=== PATIENT | male | born 1980 | race Caucasian/White ===

== ENCOUNTER 2024-09-18 10:51 | Observation (INO) ==
[2024-09-18] MEDS ORDERED: DILAUDID INJ IVP PRN (12:05)
--- NOTE | 2024-09-18 12:24 | EKG ---
Test Reason : pre-operative clearance Blood Pressure : */* mmHG Vent. Rate : 90 BPM Atrial Rate : 90 BPM P-R Int : 150 ms QRS Dur : 90 ms QT Int : 352 ms P-R-T Axes : 22 19 70 degrees QTc Int : 430 ms Normal sinus rhythm Nonspecific ST and T wave abnormality Abnormal ECG No previous ECGs available Confirmed by Holger Wasserman MD ([id number]) on 09/18/2024 5:31:51 PM Referred By: Confirmed By: Holger Wasserman MD
[2024-09-18 12:35] LABS: BASOPHILS % (AUTO) 0.7 % (0.2-1.0); EOSINOPHILS # (AUTO) 0.1 x10^3/uL (0.0-0.2); EOSINOPHILS % (AUTO) 1.1 % (0.9-2.9); HEMATOCRIT 39.5 % (42.0-54.0); HEMOGLOBIN 13.4 g/dL (13.5-18.0); LYMPHOCYTES # (AUTO) 1.7 X10^3/uL (1.3-2.9); LYMPHOCYTES % (AUTO) 29.7 % (21.0-51.0); MEAN CORPUSCULAR HEMOGLOBIN 28.2 pg (27.0-34.0); MEAN CORPUSCULAR HGB CONC 33.9 g/dL (33.0-35.0); MEAN CORPUSCULAR VOLUME 83.1 fL (80.0-100.0); MEAN PLATELET VOLUME 8.3 fL (7.4-11.0); MONOCYTES # (AUTO) 0.4 x10^3/uL (0.3-0.8); MONOCYTES % (AUTO) 7.3 % (0.0-13.0); NEUTROPHILS # (AUTO) 3.5 x10^3/uL (2.2-4.8); NEUTROPHILS % (AUTO) 61.2 % (42.0-75.0); PLATELET COUNT 305 X10^3/uL (150.0-450.0); RED BLOOD COUNT 4.75 X10^6/uL (4.7-6.0); RED CELL DISTRIBUTION WIDTH 15.6 % (11.6-16.5); WHITE BLOOD COUNT 5.7 X10^3/uL (3.6-10.0)
[2024-09-18 12:49] LABS: ALANINE AMINOTRANSFERASE 17 Units/L (12-78); ALBUMIN 3.3 g/dL (3.4-5.0); ALKALINE PHOSPHATASE 58 Units/L (46-116); AMYLASE 76 Units/L (25-115); ASPARTATE AMINO TRANSFERASE 32 Units/L (15-37); BLOOD UREA NITROGEN 11 mg/dL (7-18); CALCIUM 9.3 mg/dL (8.5-10.1); CHLORIDE 97 mmol/L (98-107); COR CA(FOR HYPOALB) 9.9 mg/dL (8.5-10.1); CREATININE 1.68 mg/dL (0.70-1.30); GLUCOSE 88 mg/dL (65-99); LIPASE 61 Units/L (16-77); POTASSIUM 4.1 mmol/L (3.5-5.1); SODIUM 132 mmol/L (136-145); TOTAL PROTEIN 7.6 g/dL (6.4-8.2); eGFR NON BLACK RACES 48 (>60)
--- NOTE | 2024-09-18 13:17 | RAD ---
EXAM: CHEST, PA/LAT ADULT HISTORY: PREOP GB SX; COMPARISON: No relevant prior studies were available for comparison at the time of interpretation. TECHNIQUE: CHEST, PA/LAT ADULT FINDINGS: Chest: Lines and tubes: Right sided implanted port with tip in satisfactory position. Mediastinum: Cardiac and mediastinal shadow is within normal limits for size and contour. Pulmonary vessels: No pulmonary vascular congestion. Lung menezes: No suspicious airspace opacity. Pleura: No effusion. No pneumothorax. Bones and soft tissues: No acute osseous or soft tissue abnormality. IMPRESSION: 1. No acute cardiopulmonary abnormality THIS IS AN ELECTRONICALLY VERIFIED FINAL REPORT 09/18/2024 1:13 PM - Electronically signed by Willy Nichols MD
[2024-09-18] MEDS: ZOFRAN INJ 4 MG VIAL IVP PRN (13:32)
[2024-09-18] MEDS: D5 1/2 NS 1,000 ML 1,000 ML IV SCH (13:36)
[2024-09-18 14:13] VITALS: BMI 27.4
[2024-09-18] MEDS: CLARITIN PO SCH (15:05)
[2024-09-18] MEDS: TYLENOL 325 MG TAB PO PRN (15:06)
[2024-09-18] MEDS ORDERED: ZOFRAN INJ 4 MG VIAL IVP PRN (18:24)
[2024-09-18] MEDS: PROTONIX INJ 40 MG VIAL IVP SCH (20:47)
[2024-09-19] MEDS: BUTT CREAM (COMPOUND) TOP PRN (04:39)
[2024-09-19 06:17] LABS: BASOPHILS % (AUTO) 0.7 % (0.2-1.0); EOSINOPHILS # (AUTO) 0.2 x10^3/uL (0.0-0.2); EOSINOPHILS % (AUTO) 3.3 % (0.9-2.9); HEMATOCRIT 37.1 % (42.0-54.0); HEMOGLOBIN 12.7 g/dL (13.5-18.0); LYMPHOCYTES # (AUTO) 2.5 X10^3/uL (1.3-2.9); LYMPHOCYTES % (AUTO) 41.6 % (21.0-51.0); MEAN CORPUSCULAR HGB CONC 34.1 g/dL (33.0-35.0); MEAN CORPUSCULAR VOLUME 82.2 fL (80.0-100.0); MEAN PLATELET VOLUME 8.8 fL (7.4-11.0); MONOCYTES # (AUTO) 0.3 x10^3/uL (0.3-0.8); MONOCYTES % (AUTO) 5.4 % (0.0-13.0); PLATELET COUNT 248 X10^3/uL (150.0-450.0); RED BLOOD COUNT 4.52 X10^6/uL (4.7-6.0); RED CELL DISTRIBUTION WIDTH 15.7 % (11.6-16.5)
[2024-09-19 06:36] LABS: ALANINE AMINOTRANSFERASE 15 Units/L (12-78); ALBUMIN 2.8 g/dL (3.4-5.0); ALKALINE PHOSPHATASE 50 Units/L (46-116); ASPARTATE AMINO TRANSFERASE 21 Units/L (15-37); BLOOD UREA NITROGEN 8 mg/dL (7-18); CALCIUM 8.7 mg/dL (8.5-10.1); CARBON DIOXIDE 24.5 mmol/L (21-32); CHLORIDE 99 mmol/L (98-107); COR CA(FOR HYPOALB) 9.7 mg/dL (8.5-10.1); CREATININE 1.25 mg/dL (0.70-1.30); GLUCOSE 103 mg/dL (65-99); POTASSIUM 3.6 mmol/L (3.5-5.1); SODIUM 136 mmol/L (136-145); TOTAL PROTEIN 6.7 g/dL (6.4-8.2); eGFR NON BLACK RACES > 60 (>60)
[2024-09-19] MEDS ORDERED: CONSULT PHARMACY - POTASSIUM & MAGNESIUM XX SCH (09:00)
[2024-09-19] MEDS: MAGNESIUM SULFATE 1 GRAM/100 mL PREMIX 1 G/100 ML BAG IV SCH (10:28)
[2024-09-19] MEDS: NS 250 ML IV 250 ML IV ONE (10:34)
[2024-09-19] MEDS: PRECEDEX INJ VIAL ONE (11:03)
[2024-09-19] MEDS: REGLAN INJ 10 MG VIAL ONE (11:03)
[2024-09-19] MEDS: DECADRON INJ ONE (11:03)
[2024-09-19] MEDS: ZEMURON 100 MG VIAL ONE (11:03)
[2024-09-19] MEDS: PEPCID 20 MG VIAL ONE (11:03)
[2024-09-19] MEDS: DIPRIVAN VIAL 20 ML ONE (11:03)
[2024-09-19] MEDS: ZOFRAN INJ 4 MG VIAL ONE (11:03)
[2024-09-19] MEDS: FENTANYL VIAL INJ 100 mcg ONE (11:04)
[2024-09-19] MEDS: VERSED ONE (11:04)
[2024-09-19] MEDS: K-RIDER 10 MEQ/100 ML WATER 10 MEQ/100 ML BAG IV SCH (11:46)
[2024-09-19] MEDS: LR 1,000 ML IV 1,000 ML IV ONE ×2 (11:49→19:03)
[2024-09-19] MEDS: ANCEF VIAL 1 GRAM IV PRN (11:50)
[2024-09-19] MEDS: VERSED IVP PRN (12:04)
[2024-09-19] MEDS: ZOFRAN INJ 4 MG VIAL IVP PRN (12:06)
[2024-09-19] MEDS: REGLAN INJ 10 MG VIAL IVP PRN (12:08)
[2024-09-19] MEDS: PEPCID 20 MG VIAL IVP PRN (12:09)
[2024-09-19] MEDS ORDERED: XYLOCAINE 2 % (PLAIN) ONE (12:20)
[2024-09-19] MEDS: ANCEF VIAL 1 GRAM ONE (12:20)
[2024-09-19] MEDS ORDERED: KETAMINE HCL ONE (12:20)
[2024-09-19] MEDS: NS 100 ML IV 100 ML ONE (12:20)
[2024-09-19] MEDS ORDERED: ULTANE GAS IN ONE (12:20)
[2024-09-19] MEDS: LR 1,000 ML IV 900 ML IV PRN (12:20)
[2024-09-19] MEDS: FENTANYL VIAL INJ 100 mcg IVP PRN (12:25)
[2024-09-19] MEDS: DIPRIVAN VIAL 120 ML IVP PRN (12:25)
[2024-09-19] MEDS: KETAMINE HCL IV PRN (12:25)
[2024-09-19] MEDS: ZEMURON 100 MG VIAL IVP PRN (12:25)
[2024-09-19] MEDS: DECADRON INJ IVP PRN (12:30)
[2024-09-19] MEDS: BRIDION ONE (12:31)
[2024-09-19] MEDS: TORADOL 30 MG VIAL ONE (12:33)
[2024-09-19] MEDS: OFIRMEV IV 1000 MG VIAL 1,000 MG/100 ML VIAL IV ONE (12:33)
[2024-09-19] MEDS: BACTROBAN TOPICAL OINT ONE (12:36)
[2024-09-19] MEDS: NEO-SYNEPHRINE INJ IVP PRN (12:40)
[2024-09-19] MEDS: OFIRMEV IV 1000 MG VIAL 1,000 MG/100 ML VIAL IV PRN (12:50)
[2024-09-19] MEDS: PRECEDEX INJ VIAL IVP PRN (13:02)
[2024-09-19] MEDS: DILAUDID INJ ONE (13:33)
[2024-09-19] MEDS: TORADOL 30 MG VIAL IVP PRN (13:46)
[2024-09-19] MEDS: BRIDION IVP PRN (14:07)
[2024-09-19] MEDS: DILAUDID INJ IVP PRN (14:10)
[2024-09-19] MEDS ORDERED: BENADRYL INJ 50 MG VIAL IVP PRN (14:21)
[2024-09-19] MEDS ORDERED: REGLAN INJ 10 MG VIAL IVP PRN (14:21)
[2024-09-19] MEDS ORDERED: DILAUDID INJ IVP PRN ×2 (14:21→14:27)
[2024-09-19] MEDS ORDERED: ZOFRAN INJ 4 MG VIAL IVP PRN (14:21)
[2024-09-19] MEDS ORDERED: BARHEMSYS INJ IVP PRN (14:21)
[2024-09-19] MEDS ORDERED: NS 250 ML IV 25 ML IV PRN (14:26)
[2024-09-19] MEDS: ZOSYN VIAL 3.375 GRAMS 3.375 G in NS 100 ML IV 100 ML IV SCH (18:26)
--- NOTE | 2024-09-19 18:26 | DR.CONSULT ---
CONSULT Consultation for Day of: Date: 09/19/24 Chief Complaint Chief Complaint: Abdominal Allergies Allergies Allergy/AdvReac Type Severity Reaction Status Date / Time No Known Allergies Allergy Verified 09/18/24 11:13 History of Present Illness History of Present Illness: Patient referred to surgery for recurrent gallbladder pain. Underwent cholecystectomy earlier today. Currently resting comfortably in bed with mother at bedside. This has been ongoing for weeks. PMH: Seizure disorder following brain tumor resection, depression following brain tumor, hypertension. PSH: Brain tumor resection, cholecystectomy. ROS: 12 point ROS unobtainable due to patient's postanesthesia state. Mother does report weeks of abdominal pain with poor p.o. intake. Recent hospital admission at another facility for same. PE: Well-developed, well-nourished male resting comfortably in bed. Slight postsurgical changes of the head. Heart regular rate and rhythm. Lungs clear. Dressings over surgical sites with drain in place of the abdomen. Bowel sounds are present. Social History Does patient currently use any type of tobacco product: Yes Type of Tobacco Use: Cigarettes Alcohol Use: None Drug Use: None Medications Home Medications: No Known Allergies Allergy (Verified 09/18/24 11:13) Physical Exam Vital Signs: Vital Signs Temperature 97.1 F Temperature 97.5 F Temperature 97.6 F Pulse Rate [Left Brachial] 76 Pulse Rate [Left Brachial] 86 Pulse Rate 78 Pulse Rate 77 Pulse Rate 79 Pulse Rate 83 Pulse Rate 81 Pulse Rate 80 Pulse Rate 86 Respiratory Rate 16 Respiratory Rate 18 Respiratory Rate 18 Respiratory Rate 16 Respiratory Rate 16 Respiratory Rate 16 Respiratory Rate 16 Respiratory Rate 18 Respiratory Rate 17 Blood Pressure [Right Arm] 125/75 Blood Pressure 92/54 Blood Pressure 91/54 Blood Pressure 94/56 Blood Pressure 98/56 Blood Pressure 99/60 Blood Pressure 103/60 Blood Pressure 109/66 O2 Sat by Pulse Oximetry 99 O2 Sat by Pulse Oximetry 99 O2 Sat by Pulse Oximetry 98 O2 Sat by Pulse Oximetry 99 O2 Sat by Pulse Oximetry 99 O2 Sat by Pulse Oximetry 99 O2 Sat by Pulse Oximetry 98 O2 Sat by Pulse Oximetry 96 O2 Sat by Pulse Oximetry 96 Plan (1) Calculus of gallbladder with cholecystitis: Status: Acute Qualifiers: Cholecystitis acuity: acute Biliary obstruction: without biliary obstruction Qualified Code(s): K80.00 - Calculus of gallbladder with acute cholecystitis without obstruction Narrative Support Text: Continue per primary team. (2) Seizures: Status: None Narrative Support Text: Resume home meds after n.p.o. status revoked (3) Depression: Status: None Qualifiers: Depression Type: other depression Qualified Code(s): F32.89 - Other specified depressive episodes Narrative Support Text: See above.
[2024-09-19 21:46] VITALS: O2SAT 99
[2024-09-20 04:14] VITALS: BP 120/71
[2024-09-20 06:11] LABS: BASOPHILS % (AUTO) 0.1 % (0.2-1.0); HEMATOCRIT 33.8 % (42.0-54.0); HEMOGLOBIN 11.6 g/dL (13.5-18.0); LYMPHOCYTES # (AUTO) 1.3 X10^3/uL (1.3-2.9); LYMPHOCYTES % (AUTO) 18.7 % (21.0-51.0); MEAN CORPUSCULAR HEMOGLOBIN 28.3 pg (27.0-34.0); MEAN CORPUSCULAR HGB CONC 34.3 g/dL (33.0-35.0); MEAN CORPUSCULAR VOLUME 82.6 fL (80.0-100.0); MEAN PLATELET VOLUME 8.6 fL (7.4-11.0); MONOCYTES # (AUTO) 0.1 x10^3/uL (0.3-0.8); MONOCYTES % (AUTO) 1.7 % (0.0-13.0); NEUTROPHILS # (AUTO) 5.6 x10^3/uL (2.2-4.8); NEUTROPHILS % (AUTO) 79.5 % (42.0-75.0); PLATELET COUNT 229 X10^3/uL (150.0-450.0); RED BLOOD COUNT 4.09 X10^6/uL (4.7-6.0)
[2024-09-20 06:29] LABS: ALANINE AMINOTRANSFERASE 14 Units/L (12-78); ALBUMIN 2.4 g/dL (3.4-5.0); ALKALINE PHOSPHATASE 43 Units/L (46-116); ASPARTATE AMINO TRANSFERASE 29 Units/L (15-37); BLOOD UREA NITROGEN 8 mg/dL (7-18); CALCIUM 8.6 mg/dL (8.5-10.1); CARBON DIOXIDE 26.4 mmol/L (21-32); CHLORIDE 102 mmol/L (98-107); COR CA(FOR HYPOALB) 9.9 mg/dL (8.5-10.1); COR NA(FOR HYPERGLY) 134 mmol/L (136-145); CREATININE 1.11 mg/dL (0.70-1.30); GLUCOSE 162 mg/dL (65-99); MAGNESIUM 2.5 mg/dL (2.0-2.9); POTASSIUM 4.9 mmol/L (3.5-5.1); SODIUM 133 mmol/L (136-145); TOTAL PROTEIN 6.2 g/dL (6.4-8.2); eGFR NON BLACK RACES > 60 (>60)
[2024-09-20 07:37] VITALS: PULSE 50; RESP 17; TEMP 96.7
== END 2024-09-20 10:05 | disposition home or self-care (01) ==
LOC: MED/SURG
PROVIDERS: ADMIT Surgery; ATTEND Surgery
DX: R73.09 Other abnormal glucose; E87.1 Hypo-osmolality and hyponatremia; K66.0 Peritoneal adhesions (postprocedural) (postinfection); F32.89 Other specified depressive episodes; Z85.841 Personal history of malignant neoplasm of brain; R94.31 Abnormal electrocardiogram [ECG] [EKG]; K82.1 Hydrops of gallbladder; R11.2 Nausea with vomiting, unspecified; K80.12 Calculus of gallbladder with acute and chronic cholecystitis without obstruction; E83.42 Hypomagnesemia; Z86.69 Personal history of other diseases of the nervous system and sense organs; K82.8 Other specified diseases of gallbladder; Z01.810 Encounter for preprocedural cardiovascular examination; R10.84 Generalized abdominal pain; Z72.0 Tobacco use